=== PATIENT | female | born 1940 | race American Indian/Alaskan Native ===

== ENCOUNTER 2016-09-13 09:02 | Outpatient (CLI) | payer MEDICARE, OTHER ==
[2016-09-13 10:25] LABS: Blood Urea Nitrogen 12 mg/dL (7-17)
[2016-09-13] MEDS ORDERED: NACL ONE (10:26)
--- NOTE | 2016-09-13 15:17 | Cat Scan Report ---
CT CHEST WITH CONTRAST HISTORY: Left upper lobe lung nodule, lung mass. FINDINGS: The opacity in the posterior aspect of the left upper lobe measures 3.1 x 2.3 cm and appears grossly unchanged since 09/02/14 exam. This appears to represent scarring or atelectasis over malignant mass. There are moderate underlying emphysematous changes in both lungs. The remainder of the lungs are clear. No pleural effusion or pneumothorax. Heart and mediastinal structures are within normal limits in no thoracic adenopathy. The bony thorax is intact. No suspicious bony lesion or fracture. Limited images of the upper abdomen demonstrate multiple liver hypodensities consistent with cysts or hemangioma which are unchanged. There are also multiple calyceal stones and cysts in the right kidney but no hydronephrosis. IMPRESSION: No change.
== END 2016-09-13 09:03 | disposition home or self-care (01) ==
LOC: CT 09:02
PROVIDERS: ATTEND Internal Medicine
DX: N28.1 Cyst of kidney, acquired (principal); N20.0 Calculus of kidney
CPT/HCPCS: 36415; 71260; 82565; 84520; Q9967

== ENCOUNTER 2016-10-10 11:13 | Outpatient (CLI) | payer MEDICARE, OTHER ==
[2016-10-10 12:03] LABS: Basophils % (Auto) 0.7 % (0.0-1.8); Eosinophils % (Auto) 1.1 % (0.0-4.3); Hematocrit 40.3 % (30.3-42.9); Hemoglobin 13.2 gm/dl (10.1-14.3); Mean Corpuscular HGB Conc 33 % (30-34); Mean Corpuscular Hemoglobin 30 pg (28-32); Mean Corpuscular Volume 91 fl (79-97); Platelet Count 228 K/mm3 (140-440); Red Blood Count 4.41 M/mm3 (3.65-5.03); Red Cell Distribution Width 13.7 % (13.2-15.2); White Blood Count 7.3 K/mm3 (4.5-11.0)
[2016-10-10 12:13] LABS: INR 0.96 (0.87-1.13); Partial Thromboplastin Time 27.7 Sec. (24.2-36.6)
[2016-10-10] MEDS ORDERED: SUBLIMAZE IV ONE (12:33)
[2016-10-10] MEDS ORDERED: VERSED IV ONE (12:33)
--- NOTE | 2016-10-10 14:03 | Short Stay Summary ---
Short Stay Documentation Date of service: 10/10/16 - History Principal diagnosis: monoclonal gammopathy H&P: obtained from office - Allergies and Medications Current Medications: Allergies naproxen sodium [From Aleve] Allergy (Unknown, Verified 06/04/16 15:03) Hives ibuprofen [From Advil] Allergy (Verified 06/04/16 15:03) Hives Home Medications Medication Instructions Recorded Confirmed Last Taken Type Valsartan/Hydrochlorothiazide 1 tab PO DAILY 10/21/14 10/10/16 10/09/16 History [Valsartan-Hctz 80-12.5 mg] 1 tab Aspirin EC [Aspirin Enteric Coated 1 tab PO DAILY 06/03/16 10/10/16 10/03/16 History TAB] 81mg HYDROcodone/APAP 5-325 [[place] 1 tab PO Q12H PRN 06/03/16 10/10/16 09/20/16 History 5-325 mg TAB] 1 tab Pantoprazole [Protonix] 40 mg PO QDAY #30 tablet 06/05/16 10/10/16 10/03/16 Rx 40mg HYDROcodone/APAP 5-325 [[place] 1 tab PO Q6H PRN 10/10/16 10/10/16 10/03/16 History 5-325 mg TAB] 1 tab Meloxicam [Mobic] 7.5 mg PO QDAY PRN 10/10/16 10/10/16 10/06/16 History 7.5mg - Physical exam General appearance: no acute distress - Brief post op/procedure progress note Date of procedure: 10/10/16 Pre-op diagnosis: monoclonal gammopathy Post-op diagnosis: same Procedure: CT bone marrow biopsy Anesthesia: other (conscious sedation) Surgeon: LESLIE PARRA Estimated blood loss: none Pathology: list (4 tubes, 1 bone core) Specimen disposition: to lab Condition: stable - Hospital course Hospital course: uneventful - Disposition Condition at discharge: Good Disposition: DISCHARGED TO HOME OR SELFCARE Short Stay Discharge Plan Follow up with: CAROLYNE KRUEGER MD [Primary Care Provider] - 7 Days
[2016-10-10 14:34] VITALS: BP 103/56
--- NOTE | 2016-10-11 08:35 | XRay Report ---
METASTATIC BONE SURVEY: HISTORY: Monoclonal gammopathy. FINDINGS: No comparison. Multiple radiographs of the axial and proximal appendicular skeleton were obtained. No abnormal bony production or destruction is appreciated. Degenerative changes are noted in the cervical and lumbar spine. IMPRESSION: No abnormal bony production or destruction is appreciated.
--- NOTE | 2016-10-11 09:09 | Cat Scan Report ---
CT BIOPSY BONE MARROW: HISTORY: Monoclonal gammopathy. DESCRIPTION OF PROCEDURE: Informed consent was obtained. Sterile technique was utilized. Conscious sedation was accomplished with Versed and fentanyl. The patient was sedated for 20 minutes. Independent cardiorespiratory monitoring by RN. Intraobserver time was [address] guidance, a 9-gauge introducer needle was advanced into the left posterior iliac bone. 4 bone marrow aspirations were obtained. One 10-gauge core biopsy was obtained. Pathology was on site to handle the samples. No complications. IMPRESSION: Successful CT-guided bone marrow biopsy, as outlined above.
== END 2016-10-10 15:00 | disposition home or self-care (01) ==
LOC: OPU 11:13
PROVIDERS: ATTEND Internal Medicine Hematology & Oncology
DX: D47.2 Monoclonal gammopathy (principal); M47.892 Other spondylosis, cervical region; M47.896 Other spondylosis, lumbar region
CPT/HCPCS: 36415; 38221; 77012; 77074; 85007; 85025; 85097; 85610; 85730; 88161; 88305; 88311; 88313; J2250; J3010

== ENCOUNTER 2016-11-08 09:37 | Outpatient (CLI) | payer MEDICARE, OTHER ==
--- NOTE | 2016-11-08 13:34 | Mammography Report ---
BONE DENSITY STUDY: DEFINITIONS: BMD = Bone Mineral Density T-score = BMD related to mean peak bone mass of young adult (mean expressed in Standard Deviation) Z-score = Age matched BMD expressed in SD World Health Organization (WHO) Diagnostic Criteria Normal T-score > -1 SD Osteopenia T-score between -1 and -2.4 SD Osteoporosis T-score -2.5 SD or below FINDINGS: The weighted average BMD of lumbar spine L1-L4 is 0.740 with a T-score of -2.8. The weighted average BMD of hip is 0.618 with a T-score of -2.7 IMPRESSION: The patient's T-score is diagnostic for osteoporosis and high relative risk for fracture. NOTE: BMD is not the only risk factor for fracture; also consider factors such as the patient's age, risk of falling, previous osteoporotic fracture, family history of osteoporotic fractures, current smoker, and low body weight. Fisher's triangle is a region of interest in femur, predominantly of trabecular bone. It is not a true anatomic site, and [facility] does not recommend its use clinically.
== END 2016-11-08 09:38 | disposition home or self-care (01) ==
LOC: MAMMO 09:37
PROVIDERS: ATTEND Internal Medicine
DX: M81.0 Age-related osteoporosis without current pathological fracture (principal)
CPT/HCPCS: 77080

== ENCOUNTER 2016-11-22 10:23 | Day surgery (SDC) | payer MEDICARE, OTHER ==
[2016-11-22] MEDS ORDERED: RECLAST IV ONE (10:48)
[2016-11-22 11:24] VITALS: BP 114/69
== END 2016-11-22 12:12 | disposition home or self-care (01) ==
LOC: OPU 10:23 → EDSTATUS 11:30 → OPU 12:12
PROVIDERS: ATTEND Internal Medicine
DX: M81.0 Age-related osteoporosis without current pathological fracture (principal)
CPT/HCPCS: 96365; J3489

== ENCOUNTER 2019-02-12 08:57 | Outpatient (CLI) | payer MEDICARE, OTHER ==
[2019-02-12 10:09] LABS: Blood Urea Nitrogen 8 mg/dL (7-17)
--- NOTE | 2019-02-12 16:05 | Cat Scan Report ---
PROCEDURE: CT CHEST W CON TECHNIQUE: Computerized axial tomography of the chest was performed during the IV injection of iodin ated nonionic contrast. CT DOSE LENGTH PRODUCT: 1137.5 mGycm HISTORY: WEIGHT LOSS,DIARRHEA,LUNG NODULE COMPARISONS: None . FINDINGS: Contrast-enhanced CT of the chest was performed following the intravenous administration of iodinated contrast. Data was reformatted into sagittal and coronal planes. These images demonstrate a right upper lobe parahilar mass, likely carcinoma of the lung, 10.4 x 0.4 x 10.0 cm. There is consolidation of the entire right upper lobe which is likely postobstructive atel ectasis or pneumonia. There is a region of left upper lobe pulmonary consolidation in the inferior aspect of the left upper lobe, with air bronchograms, which could represent pneumonia or pulmonary scarring but underlying tu mor is not excluded. Solid-appearing portion of this region measures 1.1 x 2.5 x 1.5 cm on sagittal i mage 56 axial image 61. There is a right paratracheal lymph node, contiguous with the main mass, coronal image 5, axial image 91 approximately 3.3 x 3.0 x 3.0 cm. No central pulmonary embolism is seen. Evaluation of peripheral vessels is limited by respiratory mot ion. VQ scan may be considered if there is clinical concern for pulmonary embolism. The ascending thoracic aorta is top normal in size and 3.5 cm. There is no pleural or pericardial eff usion. An abdominal CT has been performed and will be reported separately. IMPRESSION: Right upper lobe parahilar mass consistent with carcinoma lung with postobstructive atele ctasis /pneumonia of the right upper lobe Region of left upper lobe consolidation which could represent scar, atelectasis or tumor All CT scans at this location are performed using dose modulation techniques as appropriate to a perf ormed exam including the following: automated exposure control, adjustment of the mA and/or kV accord ing to patient size (this includes techniques or standardized protocols for targeted exams where dose is matched to indication/reason for exam, i.e.extremities or head; use of imaging [id number] This document is electronically signed by Jovani Rangel MD., February 12 2019 04:04:01 PM ET
--- NOTE | 2019-02-12 16:11 | Cat Scan Report ---
PROCEDURE: CT ABDOMEN PELVIS W CON TECHNIQUE: Computerized axial tomography of the abdomen and pelvis was performed after the IV inject ion of iodinated nonionic contrast. HISTORY: WEIGHT LOSS,DIARRHEA,LUNG NODULE FINDINGS: Contrast-enhanced CT of the abdomen and pelvis was performed. The lung bases appear clear. ABDOMEN: There are multiple hepatic cysts without suspect focal hepatic lesion. The adrenal glands appear with in normal limits. No focal pancreatic lesion is seen. The spleen is normal in size. The gallbladder is within normal limits. There are bilateral renal cysts. There are small right nonob structing renal calculi. There is scoliosis, convex left at L2-L3 of approximately 15 degrees. There is 0.4 cm degenerative re trolisthesis of L1 on L2. There is aortic atherosclerotic change without aneurysmal dilation of the aorta. There is wall thickening of the ascending colon and transverse colon, distal descending colon and sig moid colon which could represent underdistention or colitis. No significant lymphadenopathy is seen i n the abdomen. Pelvis: The appendix is not seen. There is no evidence of appendicitis. There is no evidence of diverticulitis. There has been a hysterectomy. The urinary bladder is within normal limits. There is dural ectasia of the sacrum. IMPRESSION: ABDOMEN: Right nonobstructing renal calculi No significant lymphadenopathy is seen in the abdomen Colonic wall thickening, colitis versus under distention Pelvis: Hysterectomy All CT scans at this location are performed using dose modulation techniques as appropriate to a perf ormed exam including the following: automated exposure control, adjustment of the mA and/or kV accord ing to patient size (this includes techniques or standardized protocols for targeted exams where dose is matched to indication/reason for exam, i.e.extremities or head; use of imaging [id number] This document is electronically signed by Jovani Rangel MD., February 12 2019 04:09:32 PM ET
== END 2019-02-12 08:58 | disposition home or self-care (01) ==
LOC: CT 08:57
PROVIDERS: ATTEND Internal Medicine
DX: N20.0 Calculus of kidney (principal); R91.1 Solitary pulmonary nodule; I10 Essential (primary) hypertension; K21.9 Gastro-esophageal reflux disease without esophagitis; Z90.710 Acquired absence of both cervix and uterus
CPT/HCPCS: 36415; 71260; 74177; 82565; 84520; Q9967

== ENCOUNTER 2019-02-18 06:26 | Day surgery (SDC) | payer MEDICARE, OTHER ==
[2019-02-18] MEDS ORDERED: NACL 0.9% 1000 ML 1,000 ML IV SCH (07:00)
[2019-02-18] MEDS ORDERED: WATER FOR IRRIG STERILE IR ONE (07:26)
--- NOTE | 2019-02-18 07:43 | Anesthesia Consultation ---
Anesthesia Consult and Med Hx Date of service: 02/18/19 - Airway Anesthetic Teeth Evaluation: Dentures (upper), Partials (bottom) ROM Head & Neck: Adequate Mental/Hyoid Distance: Adequate Mallampati Class: Class II Intubation Access Assessment: Probably Good - Pre-Operative Health Status ASA Pre-Surgery Classification: ASA3 Proposed Anesthetic Plan: MAC - Pulmonary Hx Smoking: Yes (quit 5 years ago) Hx Respiratory Symptoms: Yes (lung mass) - Cardiovascular System Hx Hypertension: Yes - Central Nervous System Hx Psychiatric Problems: No - Other Systems Hx Cancer: No
--- NOTE | 2019-02-18 07:44 | Anesthesia Day of Surgery ---
Anesthesia Day of Surgery - Day of Surgery Patient Examined: Yes Patient H&P Reviewed: Yes Patient is NPO: Yes
[2019-02-18] MEDS ORDERED: XYLOCAINE 1% 20 mL ONE (07:45)
[2019-02-18] MEDS ORDERED: HURRICAINE ONE 20% TOPICAL SPRAY MM (07:46)
[2019-02-18] MEDS ORDERED: ADRENALINE P/F ONE (07:46)
[2019-02-18] MEDS ORDERED: LIDOCAINE VISCOUS 2% ONE (07:46)
[2019-02-18] MEDS ORDERED: DIPRIVAN 10 MG/ML IV ONE ×2 (07:47)
[2019-02-18] MEDS ORDERED: XYLOCAINE 2% INFILTRATI ONE (07:48)
[2019-02-18] MEDS ORDERED: LIDOCAINE VISCOUS 2% PO ONE ×3 (07:56→07:58)
[2019-02-18] MEDS ORDERED: XYLOCAINE 1% 20 mL INFILTRATI ONE ×6 (08:24→08:29)
[2019-02-18 09:54] VITALS: BP 111/75
--- NOTE | 2019-02-18 09:56 | Procedure Note ---
Date of procedure: 02/18/19 Pre-op diagnosis: Lung Mass Post-op diagnosis: same Procedure: Bronchoscopy with biopsy and brush After obtaining informed consent from patient, taken to endo and preppred. Scope passed through right nare without difficulty. Lidocaine used on vocal cords trachea, right and left main stem bronchus. The RIGHT UPPER lobe is completely OCCLUDED. Unable to pass scope but all from extrinsic compression. There were no endobronchial lesions. Burshings were taken at the area that should be the opening to the right upper lobe. There was some abnormal tissue seen there. Biopsy was taken posterior to the opening of the right upper lobe as the majority of tumor sits in that direction. Ralph needled attempted times 2 with somewhat decent sample. Scope retracted and patient recovered. Anesthesia: MAC Surgeon: KASSANDRA DOMINGUEZ Estimated blood loss: none Pathology: list (brushing and biopsy of right upper lobe) Specimen disposition: to lab Condition: stable Disposition: other (Discharge to home)
--- NOTE | 2019-02-18 10:22 | XRay Report ---
AP CHEST: HISTORY: Post biopsy of right lung mass There is diffuse opacity throughout the right upper lobe consistent with mass and/or atelectasis. There is minor air space opacity or scarring in the left upper lobe which is also unchanged. No evidence for pneumothorax or pneumomediastinum. Heart size is borderline. The bony structures are demineralized but grossly intact IMPRESSION: No evidence for pneumothorax.
== END 2019-02-18 06:27 | disposition home or self-care (01) ==
LOC: GIO 06:26
PROVIDERS: ATTEND Specialist
DX: R91.8 Other nonspecific abnormal finding of lung field (principal); K21.9 Gastro-esophageal reflux disease without esophagitis; Z90.710 Acquired absence of both cervix and uterus; Z79.899 Other long term (current) drug therapy; Z98.890 Other specified postprocedural states
CPT/HCPCS: 31623; 31645; 36415; 71045; 84260; 88104; 88112; J0171; J2704; J7030

== ENCOUNTER 2019-02-25 06:15 | Outpatient (CLI) | payer MEDICARE, OTHER ==
--- NOTE | 2019-02-25 11:55 | PET Report ---
PET/CT:02/25/19 06:15:00 CLINICAL: Lung cancer staging. RADIOPHARMACEUTICAL: 12.601mCi F18-FDG. COMPARISON: CT CAP 02/12/[address] chest 09/02/14 TECHNIQUE- Following intravenous injection of F-18 FDG and an approximately 60 minute uptake period, CT and PET images from the mid skull to the upper thighs were acquired with the patient in the fasted state. No contrast was administered. The CT protocol used for this PET CT study is designed for attenuation correction and anatomic localization of PET abnormalities. This senior power scheduler CT is not desired to produce and cannot replace, [id number] diagnostic CT scans with specific imaging protocols for different body parts and indications. Plasma glucose at the time of this test: 100g/dl. The standardized uptake values (SUV) are normalized to patient body weight and indicate the highest activity concentration (SUV max) in a given disease site. FINDINGS: Brain--Physiologic FDG uptake in the visualized regions of the brain. Neck--Physiologic FDG uptake in mucosal structures. No mass or lymphadenopathy. Chest--Physiologic FDG uptake in mediastinal blood pool and myocardium. Lungs--An FDG avid mass obstructs the right upper lobe bronchus and measures 12.0 cm craniocaudal dimension by 10.2 cm AP dimension by 8.4 cm transverse dimension with SUV 17.8. The rest of the right upper lobe is hypodense but non-FDG avid. An oval non-FDG avid left upper lobe mass measures 3.6 x 2.1 cm and is not significantly changed compared to the 2015 exam. No other lung mass or nodules. Pleura/pericardium--No abnormal uptake and no pleural effusion. Thoracic nodes--A single FDG avid 1.0 x 0.7 cm left paratracheal lymph node with SUV 6.7 at the level of the aortic arch. No hilar lymphadenopathy and no other mediastinal lymphadenopathy. Hepatobiliary--No abnormal uptake. Liver background SUV mean, as a reference for comparing FDG studies, is 2.3 . Numerous benign hepatic cysts and no liver mass. Spleen--No abnormal uptake. Pancreas--No abnormal uptake. Adrenal Glands--No abnormal uptake. Kidneys/Ureters/Bladder--No abnormal uptake. Abdominopelvic Nodes--No abnormal uptake. Bowel/Peritoneum/Mesentery--Sigmoid diverticulosis and wall thickening with multifocal FDG uptake with SUV 7.7. Pelvic organs--No abnormal uptake. Bones/Soft Tissues--No abnormal uptake and no suspicious bone lesion. IMPRESSION- 1. A 12.0 cm right upper lobe bronchogenic carcinoma obstructing the right upper lobe bronchus. 2. 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 3. Chronic left upper lobe subsegmental atelectasis with a 3.6 cm non-FDG avid left upper lobe mass which is not significantly changed since 2015. 4. No evidence of adrenal, hepatic or skeletal metastasis. 5. Benign hepatic cysts. 6. Sigmoid diverticulosis with wall thickening and FDG uptake in the thickened wall of the sigmoid colon. This likely represents chronic diverticulitis but tumor cannot be excluded.
== END 2019-02-25 06:16 | disposition home or self-care (01) ==
LOC: PET 06:15
PROVIDERS: ATTEND Specialist
DX: C77.9 Secondary and unspecified malignant neoplasm of lymph node, unspecified (principal); K76.89 Other specified diseases of liver; K57.30 Diverticulosis of large intestine without perforation or abscess without bleeding; K21.9 Gastro-esophageal reflux disease without esophagitis; I10 Essential (primary) hypertension; Z90.710 Acquired absence of both cervix and uterus
CPT/HCPCS: 78815; 82962; A9552